=== PATIENT | male | born 1970 | race Caucasian/White ===

== ENCOUNTER 2016-07-22 17:06 | Emergency (ER) | payer BC ==
--- NOTE | ~2016-07-22 | CR252 ---
[facility] A Service [facility] RADIOLOGY TEXT RESULTS PATIENT: NATAN CORTÉS LOCATION: [place] : [birth year] UNIT #: [id number] AGE: [address]: Marva Putnam APRN SEX: M ORDER DR: [id number] [facility] [address] [place], [place] [address] [id number] E MR#: [id number] Acc #: [id number] NAME: NATAN CORTÉS : 1970 SEX: M STUDY DATE/TIME: 07/22/2016 14:52 UNIT: [place] ROOM: STUDY DESCRIPTION: CR Tibia and Fibula 2 Views Lt Attending Physician: Marva Putnam A.P.R.N. Ordering Physician: [facility] MEDICAL IMAGING REPORT This report is preliminary unless electronic signature is present EXAM Tib-fib on the left, 07/22/2016 INDICATIONS 45-year-old male with a history of lacerations to the leg and forearm after a wall fell on him. TECHNIQUE 2 views of left tib-fib. COMPARISON STUDIES No comparisons. FINDINGS Osseous structures appear intact. Portions of the distal tib-fib not included in the field of view on both views. There is a laceration injury involving the lateral soft tissues adjacent to the fibula, localizing anteriorly on the frontal view. No retained opaque foreign body. IMPRESSION 1. Laceration injury but no underlying fracture or retained opaque foreign body. Dictated by... Waylon Brito M.D. THIS IS AN ELECTRONICALLY VERIFIED REPORT Waylon Brito M.D. at 07/23/2016 10:36 AM ZAC/dora [facility] A Service [facility] RADIOLOGY TEXT RESULTS PATIENT: NATAN CORTÉS LOCATION: [place] : [birth year] UNIT #: [id number] AGE: [address]: Marva Putnam APRN SEX: M ORDER DR: TD: 07/22/2016 20:31 JOB #: [id number] MEDICAL IMAGING REPORT Page 1 of 1 COPY
--- NOTE | ~2016-07-22 | CR132 ---
[facility] A Service of [facility] RADIOLOGY TEXT RESULTS PATIENT: NATAN CORTÉS LOCATION: [place] : [birth year] UNIT #: [id number] AGE: [address]: Marva Putnam APRN SEX: M ORDER DR: [id number] [facility] [address] [place], [place] [address] [id number] E MR#: [id number] #: [id number] NAME: NATAN CORTÉS : 1970 SEX: M STUDY DATE/TIME: 07/22/2016 14:55 UNIT: CFMO ROOM: STUDY DESCRIPTION: CR Forearm 2 View Lt Attending Physician: Marva Putnam A.P.R.N. Ordering Physician: [facility] MEDICAL IMAGING REPORT This report is preliminary unless electronic signature is present EXAM Left forearm series 07/22/2016 INDICATIONS Wall fell on him today. Laceration injury to the forearm. TECHNIQUE 2 views left forearm. COMPARISON STUDIES No comparisons. FINDINGS There is a laceration injury involving the distal aspect of the forearm and wrist appearing to localize to the radial aspect of the forearm dorsally. There is no associated fracture or retained opaque foreign body. There is localized soft tissue swelling. IMPRESSION 1. Laceration injury of the distal forearm. No fracture or retained opaque foreign body. Dictated by... Waylon Brito M.D. THIS IS AN ELECTRONICALLY VERIFIED REPORT Waylon Brito M.D. at 07/23/2016 10:36 AM ZAC/dora TD: 07/22/2016 20:37 [facility] A Service of [facility] RADIOLOGY TEXT RESULTS PATIENT: NATAN CORTÉS LOCATION: [place] : [birth year] UNIT #: [id number] AGE: [address]: Marva Putnam APRN SEX: M ORDER DR: JODI #: [id number] MEDICAL IMAGING REPORT Page 1 of 1 COPY
--- NOTE | ~2016-07-22 | CR278 ---
[facility] A Service of [facility] RADIOLOGY TEXT RESULTS PATIENT: NATAN CORTÉS LOCATION: [facility] : [birth year] UNIT #: [id number] AGE: [address]: Marva Putnam APRN SEX: M ORDER DR: [id number] [facility] [address] [place], [place] [address] [id number] E MR#: [id number] Acc #: [id number] NAME: NATAN CORTÉS : 1970 SEX: M STUDY DATE/TIME: 07/22/2016 14:54 UNIT: [facility] ROOM: STUDY DESCRIPTION: CR Wrist 2 View Lt Attending Physician: Marva Putnam A.P.R.N. Ordering Physician: [facility] MEDICAL IMAGING REPORT This report is preliminary unless electronic signature is present EXAM Left wrist 07/22/2016 INDICATIONS Wall fell on him today, laceration to the leg and forearm. TECHNIQUE 3 views of the left wrist. COMPARISON STUDIES No comparisons. FINDINGS There is a laceration injury of the wrist, localizing dorsally. There is no associated fracture or retained opaque foreign body. IMPRESSION 1. Laceration injury but no fracture or retained opaque foreign body. Dictated by... Waylon Brito M.D. THIS IS AN ELECTRONICALLY VERIFIED REPORT Waylon Brito M.D. at 07/23/2016 10:36 AM ZAC/dora TD: 07/22/2016 20:35 JOB #: [id number] [facility] A Service of [facility] RADIOLOGY TEXT RESULTS PATIENT: NATAN CORTÉS LOCATION: [facility] : [birth year] UNIT #: [id number] AGE: [address]: Marva Putnam APRN SEX: M ORDER DR: MEDICAL IMAGING REPORT Page 1 of 1 COPY
== END 2016-07-22 18:25 | disposition home or self-care (01) ==
LOC: CFTX 17:06
DX: S51.812A Laceration without foreign body of left forearm, initial encounter (principal); S81.812A Laceration without foreign body, left lower leg, initial encounter; K21.9 Gastro-esophageal reflux disease without esophagitis; F32.9 Major depressive disorder, single episode, unspecified; W18.09XA Striking against other object with subsequent fall, initial encounter; Y92.69 Other specified industrial and construction area as the place of occurrence of the external cause; Y99.0 Civilian activity done for income or pay
CPT/HCPCS: 12032; 73090; 73100; 73590; 90471; 90715; 99284